=== PATIENT | male | born 1960 | race Caucasian/White ===

== ENCOUNTER 2022-04-26 06:02 | Emergency (ER) | payer OTHER ==
[2022-04-26] MEDS ORDERED: Metoprolol Tartrate 5 MG in Sodium Chloride 0.9% 50 ML IV ONE (06:15)
[2022-04-26] MEDS ORDERED: Aspirin 81 MG Tab.Chew PO ONE (06:25)
[2022-04-26] MEDS: Nitroglycerin 0.4 MG Tab.SL SL ONE ×2 (06:26→08:22)
[2022-04-26 06:43] LABS: ESTIMATED GFR 62 mL/min (>60)
[2022-04-26] MEDS ORDERED: Morphine 4 MG/ML VIAL IVPUSH ONE (07:11)
[2022-04-26] MEDS ORDERED: Heparin Sodium 5,000 Units/ML Vial IVPUSH STA (09:00)
[2022-04-26] MEDS ORDERED: Clopidogrel 75 MG Tab PO ONE (09:21)
[2022-04-26] MEDS ORDERED: Heparin Sodium/0.45% NaCl 500 ML IV SCH (09:30)
== END 2022-04-26 09:57 ==
LOC: FB.ED 06:02
DX: I21.3 ST elevation (STEMI) myocardial infarction of unspecified site (principal); Z79.899 Other long term (current) drug therapy
CPT/HCPCS: 36415; 80048; 84484; 85025; 96365; 96367; 96375; 96376; 99285; A9270; J1644; J2270; J3490